=== PATIENT | female | born 1995 | race Two or more races ===

== ENCOUNTER 2019-04-25 17:02 | Emergency (ER) | payer MEDICAID ==
[2019-04-25 17:14] VITALS: BP 126/78
[2019-04-25] MEDS ORDERED: PREDNISONE 20 MG TABLET PO ONE (18:11)
[2019-04-25] MEDS ORDERED: FAMOTIDINE 20 MG TABLET PO ONE (18:11)
[2019-04-25] MEDS ORDERED: DIPHENHYDRAMINE HCL 50 MG CAPSULE PO ONE (18:11)
--- NOTE | 2019-04-25 18:16 | ER Document Report ---
HPI - HPI Patient complains to provider of: skin rash Time Seen by Provider: 04/25/19 18:08 Onset: Yesterday Onset/Duration: Worse Quality of pain: Achy Pain Level: 2 Context: Patient complains of pruritic skin rash to the right upper arm. Patient denies any new foods medications or detergents. Patient reports she may have been bit by an insect. Associated Symptoms: denies: Chest pain, Fever, Shortness of breath, Sore throat Exacerbated by: Denies Relieved by: Denies Similar symptoms previously: No Recently seen / treated by doctor: No - ROS ROS below otherwise negative: Yes Systems Reviewed and Negative: Yes All other systems reviewed and negative - CONSTITUTIONAL Constitutional: DENIES: Fever - EENT EENT: DENIES: Sore Throat - CARDIOVASCULAR Cardiovascular: DENIES: Chest pain - RESPIRATORY Respiratory: DENIES: Trouble Breathing - GASTROINTESTINAL Gastrointestinal: DENIES: Nausea - REPRODUCTIVE Reproductive: DENIES: : - MUSCULOSKELETAL Musculoskeletal: REPORTS: Swelling - DERM Skin Color: Erythema Past Medical History - General Information source: Patient - Social History Smoking Status: Never Smoker Frequency of alcohol use: None Drug Abuse: None Occupation: [employer] Family History: Reviewed & Not Pertinent Patient has suicidal ideation: No Patient has homicidal ideation: No Endocrine Medical History: Reports: Hx Graves' Disease Renal/ Medical History: Denies: Hx Peritoneal Dialysis Surgical Hx: Negative Vertical Provider Document - CONSTITUTIONAL Agree With Documented VS: Yes Exam Limitations: No Limitations General Appearance: WD/WN, No Apparent Distress - INFECTION CONTROL TRAVEL OUTSIDE OF THE [place] IN LAST 30 DAYS: No - HEENT HEENT: Atraumatic, Normal ENT Exam, Normocephalic Notes: no angioedema - NECK Neck: Normal Inspection, Supple. negative: Lymphadenopathy-Left, Lymphadenopathy-Right - RESPIRATORY Respiratory: Breath Sounds Normal, No Respiratory Distress - CARDIOVASCULAR Cardiovascular: Regular Rate, Regular Rhythm - BACK Back: Normal Inspection - MUSCULOSKELETAL/EXTREMETIES Musculoskeletal/Extremeties: KASEY BRUSH - NEURO Level of Consciousness: Awake, Alert, Appropriate Motor/Sensory: No Motor Deficit - DERM Integumentary: Warm, Dry, Rash Adult Front & Back Diagram: 1 - Erythematous patch to the medial aspect of right upper extremity, no fluctuance, no concern for abscess. Course - Re-evaluation Re-evalutation: 04/25/19 18:13 Patient with erythematous macular rash to right upper extremity. No concern for abscess. Suspect likely insect bite at this time. Patient nontoxic in appearance. - Vital Signs Vital signs: Temp Pulse Resp BP Pulse Ox 98.2 F 84 12 126/78 H 100 04/25/19 17:13 04/25/19 17:13 04/25/19 17:13 04/25/19 17:13 04/25/19 17:13 Discharge - Discharge Clinical Impression: Skin rash Condition: Stable Disposition: HOME, SELF-CARE Instructions: Use of Diphenhydramine, Insect Bites ([facility]), Steroid Medication Additional Instructions: Return immediately for any new or worsening symptoms Followup with your primary care provider, call tomorrow to make a followup appointment Take Benadryl [id number] as directed Prescriptions: Famotidine [Pepcid 20 mg Tablet] 20 mg PO BID #12 tablet Prednisone [Deltasone 10 mg Tablet] 10 mg PO ASDIR PRN #21 tablet PRN Reason: Forms: Return to Work Referrals: YESENIA MOORE NP [ALLIED HEALTH PROFESSIONAL] - Follow up as needed
== END 2019-04-25 18:39 | disposition home or self-care (01) ==
LOC: ER 17:02
DX: R21 Rash and other nonspecific skin eruption (principal)
CPT/HCPCS: 99283; J3490 ×2; J7512

== ENCOUNTER → 2019-07-28 | Outpatient (CLI) | payer MEDICAID ==
[2019-07-28 11:19] LABS: ABSOLUTE EOSINOPHILS # (AUTO) 0.1 10^3/uL (0.0-0.6); ABSOLUTE MONOCYTES (AUTO) 0.3 10^3/uL (0.1-1.4); ABSOLUTE NEUT (AUTO) 2.2 10^3/uL (1.7-8.2); BASOPHILS % (AUTO) 0.8 % (0-2); EOSINOPHILS % (AUTO) 3.2 % (0-6); HEMATOCRIT 43.3 % (36.0-47.0); HEMOGLOBIN 14.3 g/dL (12.0-15.5); LYMPHOCYTES % (AUTO) 42.3 % (13-45); MEAN CORPUSCULAR HEMOGLOBIN 26.4 pg (27.0-33.4); MEAN CORPUSCULAR VOLUME 80 fl (80-97); MONOCYTES % (AUTO) 6.7 % (3-13); PLATELET COUNT 249 10^3/uL (150-450); RED BLOOD COUNT 5.42 10^6/uL (3.72-5.28); TOTAL CELLS COUNTED % (AUTO) 100 %; WHITE BLOOD COUNT 4.7 10^3/uL (4.0-10.5)
== END ==
LOC: OD 10:30
PROVIDERS: ATTEND Nurse Practitioner Acute Care
DX: R11.0 Nausea (principal)
CPT/HCPCS: 36415; 85025

== ENCOUNTER 2019-10-06 09:00 | Emergency (ER) | payer MEDICAID ==
[2019-10-06] MEDS ORDERED: ONDANSETRON 4 MG TAB.RAPDIS PO ONE (10:37)
[2019-10-06] MEDS ORDERED: ACETAMINOPHEN 325 MG TABLET PO ONE (10:37)
[2019-10-06] MEDS ORDERED: ACETAMINOPHEN 325 MG TABLET ONE (11:20)
--- NOTE | 2019-10-06 11:36 | ER Document Report ---
Entered by DOMINGUEZ BAILEY SCRIBE 10/06/19 0952 Acting as scribe for:MICHAEL HARRINGTON MD ED General - General Stated Complaint: VOMITING/BODYACHES Time Seen by Provider: 10/06/19 09:49 Primary Care Provider: YESENIA MOORE NP [Primary Care Provider] - Follow up as needed Mode of Arrival: Ambulatory Information source: Patient Notes: This 23 year old female patient presents to the ED today with complaints of vomiting and associated body aches since 7:00 this morning. Patient reports that she vomited x5 times and the last time was about x1 hour ago. Patient also reports nausea, diarrhea x1, cough, rhinorrhea and a fever. Patient states that she had a temperature of 102 F this morning, but it has since resolved after taking ibuprofen. Patient has not received a flu shot this year. TRAVEL OUTSIDE OF THE [place] IN LAST 30 DAYS: No - Related Data Allergies/Adverse Reactions: No Known Allergies Allergy (Unverified 04/25/19 17:11) Past Medical History - General Information source: Patient - Social History Smoking Status: Unknown if Ever Smoked Cigarette use (# per day): No Family History: Reviewed & Not Pertinent Endocrine Medical History: Reports: Hx Graves' Disease, Hx Hypothyroidism Psychiatric Medical History: Reports: Hx Bipolar Disorder Review of Systems - Review of Systems Constitutional: See HPI, Fever EENT: See HPI, Other - rhinorrhea Cardiovascular: No symptoms reported Respiratory: See HPI, Cough Gastrointestinal: See HPI, Diarrhea, Nausea, Vomiting Genitourinary: No symptoms reported Female Genitourinary: Last menstrual period - x2 years ago, has control implant in LUE Musculoskeletal: See HPI, Other - Body aches, leg and hip discomfort Skin: No symptoms reported Hematologic/Lymphatic: No symptoms reported Neurological/Psychological: No symptoms reported -: Yes All other systems reviewed and negative Physical Exam - Vital signs Vitals: Temp Pulse Resp BP Pulse Ox 98.5 F 81 18 108/65 98 10/06/19 09:19 10/06/19 09:19 10/06/19 09:19 10/06/19 09:19 10/06/19 09:19 Interpretation: Normal - General General appearance: Alert In distress: None - HEENT Head: Normocephalic, Atraumatic Eyes: Normal Pupils: PERRL Ears: Normal Tympanic membrane: Normal - clear Nasal: Clear rhinorrhea - Respiratory Respiratory status: No respiratory distress Chest status: Nontender Breath sounds: Nonproductive cough - harsh cough, Other - coarse breath sounds Chest palpation: Normal - Cardiovascular Rhythm: Regular Heart sounds: Normal auscultation Murmur: No - Abdominal Inspection: Normal Distension: No distension Bowel sounds: Normal Tenderness: Nontender Organomegaly: No organomegaly - Back Back: Normal, Nontender - Extremities General upper extremity: Normal inspection, Other - control implant in LUE General lower extremity: Tender - tenderness with palpation Hip: Tender - tenderness with palpaton - Neurological Neuro grossly intact: Yes - Psychological Associated symptoms: Normal affect, Normal mood - Skin Skin Temperature: Warm Skin Moisture: Dry Skin Color: Normal Course - Re-evaluation Re-evalutation: 10/06/19 12:30 Patient is feeling better at this time. The nauseousness is gone. She is not aching as much after the Zofran and the Tylenol. - Vital Signs Vital signs: Temp Pulse Resp BP Pulse Ox 98.5 F 81 18 108/65 98 10/06/19 11:37 10/06/19 11:37 10/06/19 11:37 10/06/19 11:37 10/06/19 11:37 - Laboratory Result Diagrams: 10/06/19 11:26 10/06/19 11:26 Laboratory results interpreted by me: 10/06/19 10/06/19 10/06/19 11:26 11:26 11:26 WBC 11.5 H RBC 5.53 H MCH 26.5 L Absolute Neuts (auto) 9.1 H Seg Neutrophils % 79.6 H Total Protein 8.3 H Urine Blood SMALL H Discharge - Discharge Clinical Impression: Viral syndrome, Generalized body aches Nausea & vomiting Qualifiers: Vomiting type: unspecified Vomiting Intractability: non-intractable Qualified Code(s): R11.2 - Nausea with vomiting, unspecified Condition: Stable Disposition: HOME, SELF-CARE Additional Instructions: Viral Syndrome The physician has diagnosed a viral infection. Viruses not only cause "colds," but can cause many different symptoms including generalized aching, fever, headache, cough, diarrhea, nausea, vomiting, and fatigue. The treatment, for the most part, is simply relief of symptoms. This means that antibiotics are usually not given. Rest, fluids, pain medications and, occasionally, medication for the specific symptoms that are most bothersome will be prescribed. Use good handwashing to avoid passing the virus to others. Shared toys should be cleaned with disinfectant. Clean the toilets, sinks, and counter surfaces in bathrooms. Launder clothing in hot water. Contact the physician if you develop any new or unusual symptoms such as severe headache, stiff neck, high fever, chest pain, productive cough, or s hortness of breath. You should be rechecked if you don't see marked improvement within seven to 10 days. Take the Zofran as prescribed if needed for nauseousness. Take Tylenol 650mg every 4 hours, and ibuprofen 600 mg every 8 hours for pain and body aches. Drink plenty fluids and get plenty of rest. Follow-up with your primary care provider if not improving. RETURN TO THE EMERGENCY ROOM IF ANY NEW OR WORSENING SYMPTOMS. Prescriptions: Ondansetron [Zofran Odt 4 mg Tablet] 1 - 2 tab PO Q4H #10 tab.rapdis Referrals: YESENIA MOORE NP [Primary Care Provider] - Follow up as needed Scribe Attestation: 10/06/19 12:31 I personally performed the services described in the documentation, reviewed and edited the documentation which was dictated to the scribe in my presence, and it accurately records my words and actions. I personally performed the services described in the documentation, reviewed and edited the documentation which was dictated to the scribe in my presence, and it accurately records my words and actions.
[2019-10-06 11:44] LABS: ABSOLUTE EOSINOPHILS # (AUTO) 0.1 10^3/uL (0.0-0.6); ABSOLUTE LYMPHOCYTES (AUTO) 1.7 10^3/uL (0.5-4.7); ABSOLUTE MONOCYTES (AUTO) 0.5 10^3/uL (0.1-1.4); ABSOLUTE NEUT (AUTO) 9.1 10^3/uL (1.7-8.2); BASOPHILS % (AUTO) 0.3 % (0-2); HEMATOCRIT 44.2 % (36.0-47.0); HEMOGLOBIN 14.7 g/dL (12.0-15.5); LYMPHOCYTES % (AUTO) 14.7 % (13-45); MEAN CORPUSCULAR HEMOGLOBIN 26.5 pg (27.0-33.4); MEAN CORPUSCULAR HGB CONC 33.2 g/dL (32.0-36.0); MEAN CORPUSCULAR VOLUME 80 fl (80-97); MONOCYTES % (AUTO) 4.4 % (3-13); PLATELET COUNT 276 10^3/uL (150-450); RED BLOOD COUNT 5.53 10^6/uL (3.72-5.28); RED CELL DISTRIBUTION WIDTH 12.9 % (11.5-14.0); SEGMENTED NEUTROPHILS % (AUTO) 79.6 % (42-78); TOTAL CELLS COUNTED % (AUTO) 100 %; WHITE BLOOD COUNT 11.5 10^3/uL (4.0-10.5)
[2019-10-06 11:53] LABS: APPEARANCE,URINE CLEAR; BILIRUBIN,URINE NEGATIVE (NEGATIVE); COLOR,URINE YELLOW; GLUCOSE, URINE NEGATIVE (NEGATIVE); KETONES,URINE NEGATIVE (NEGATIVE); LEUKOCYTE ESTERASE,URINE NEGATIVE (NEGATIVE); NITRITE,URINE NEGATIVE (NEGATIVE); PROTEIN,URINE NEGATIVE (NEGATIVE); URINE SPECIFIC GRAVITY 1.019; UROBILINOGEN,URINE NEGATIVE mg/dL (<2.0)
[2019-10-06 12:01] LABS: A TYPE INFLUENZA AG NEGATIVE (NEGATIVE); B INFLUENZA AG NEGATIVE (NEGATIVE)
[2019-10-06 12:05] LABS: ALBUMIN 4.8 g/dL (3.5-5.0); ALKALINE PHOSPHATASE 68 U/L (38-126); ANION GAP 10 (5-19); ASPARTATE AMINO TRANSFERASE 18 U/L (14-36); BILIRUBIN,DIRECT 0.1 mg/dL (0.0-0.4); BILIRUBIN,TOTAL 0.4 mg/dL (0.2-1.3); BLOOD UREA NITROGEN 13 mg/dL (7-20); CALCIUM 9.7 mg/dL (8.4-10.2); CARBON DIOXIDE 26 mmol/L (22-30); CHLORIDE 106 mmol/L (98-107); CREATINE KINASE 64 U/L (30-135); GLUCOSE 92 mg/dL (75-110); POTASSIUM 4.9 mmol/L (3.6-5.0); TOTAL PROTEIN 8.3 g/dL (6.3-8.2)
[2019-10-06 13:48] VITALS: BP 102/63
== END 2019-10-06 13:48 | disposition home or self-care (01) ==
LOC: ER 09:00
DX: B34.9 Viral infection, unspecified (principal); R11.2 Nausea with vomiting, unspecified; R19.7 Diarrhea, unspecified; R05 Cough; J34.89 Other specified disorders of nose and nasal sinuses; R50.9 Fever, unspecified; R52 Pain, unspecified; Z97.5 Presence of (intrauterine) contraceptive device
CPT/HCPCS: 36415; 82550; 84703; 85025; 80053; 81001; 87804; J3490; S0119; 99284